=== PATIENT | male | born 1995 | race Caucasian/White ===

== ENCOUNTER 2017-03-20 12:26 | Emergency (ER) | payer OTHER ==
[2017-03-20 12:34] VITALS: TEMP 98.4
[2017-03-20] MEDS ORDERED: NS 1,000 ML IV ONE (13:40)
[2017-03-20 14:15] LABS: PLATELET COUNT 195 10^3/uL (150-400)
[2017-03-20] MEDS ORDERED: DEXAMETHASONE 10 MG/ML VIAL IVP ONE (14:52)
--- NOTE | 2017-03-20 15:11 | EDPHY ---
H & P Time Seen by Provider: 03/20/17 13:23 HPI/ROS: CHIEF COMPLAINT: Sore throat HISTORY OF PRESENT ILLNESS: 21-year-old male presents to the emergency department by private vehicle complaining of sore throat. Patient states that he had a fever for approximately 10 days and over the last 5 days has had sore throat. He was seen at [facility] and was started on penicillin for probable strep pharyngitis. He states despite taking penicillin over last 5 days he has had continued ongoing sore throat. He felt like it was getting worse today. He went to [facility] and was given IM injection of antibiotics and what he thought was steroids. He was told to come to the emergency department for evaluation. Patient denies fever currently. He denies dysphagia. He states having the injections at urgent care he is feeling much better and he is able to talk. He was having some pain and difficulty swallowing earlier today. Denies abdominal pain or vomiting. No chest pain or difficulty breathing. Denies fatigue. He states he is actually having difficulty sleeping because the pain in his throat and his nasal congestion. REVIEW OF SYSTEMS: Constitutional: No fever, no chills. Eyes: No double or blurry vision. ENT: sore throat. Nasal congestion. Respiratory: No cough, no shortness of breath. Cardiac: No chest pain. Gastrointestinal: No abdominal pain, vomiting or diarrhea. Genitourinary: No dysuria. Musculoskeletal: No neck or back pain. Skin: No rashes. Neurological: No headache. Past Medical/Surgical History: Asthma, right ear surgery Social History: Single Smoking Status: Never smoked Physical Exam: General Appearance: Alert, no distress. Afebrile. Nontoxic appearing. Eyes: Pupils equal and round. Extraocular motions are all intact. ENT: Mouth: Mucous membranes moist. No muffled voice or trismus. Exudate of pharyngitis he noted with swollen, 2+ tonsils. No uvular swelling or shift. No evidence of peritonsillar abscess. Patient has palpable anterior and posterior cervical lymphadenopathy noted. Respiratory: No wheezing, rhonchi, or rales, lungs are clear to auscultation. Cardiovascular: Regular rate and rhythm. Gastrointestinal: Abdomen is soft and nontender, no masses, no rebound or guarding, bowel sounds normal. Neurological: Alert and oriented x 3, cranial nerves II through XII grossly intact Skin: Warm and dry, no rashes. Musculoskeletal: Nontender to palpate along the cervical, thoracic or lumbar spine. Neck is supple. Extremities: Full range of motion and no peripheral edema. Psychiatric: Patient is oriented X 3, there is no agitation. Constitutional: Initial Vital Signs Temperature (C) 36.9 C 03/20/17 12:32 Heart Rate 119 H 03/20/17 12:32 Respiratory Rate 20 03/20/17 12:32 Blood Pressure 118/76 03/20/17 12:32 O2 Sat (%) 96 03/20/17 12:32 O2 Delivery Mode Room Air Allergies/Adverse Reactions: No Known Allergies Allergy (Unverified 03/20/17 12:31) Home Medications: Medication Instructions Recorded Ondansetron Odt [Zofran Odt] 4 mg PO Q4PRN #8 tab 03/20/17 Penicillin VK 03/20/17 predniSONE 40 mg PO DAILY 3 Days tab 03/20/17 Medical Decision Making ED Course/Re-evaluation: 21-year-old male presents with exudate pharyngitis. He was seen at urgent care earlier today and had IM injection of ceftriaxone and apparently Solu-Medrol IM. I spoke with [facility] since his form says that he received 60 mg of IM Solu-Medrol. The patient actually receive 60 mg of IM Toradol and not Solu-Medrol. The patient was given 10 mg Decadron IV as well as IV normal saline. He was feeling much better. Laboratory studies reveal elevated white blood cell count with elevated atypical lymphocytes. Positive Monospot. Patient will be discharged with oral steroids. The patient was warned against doing any kind of contact sports. He will return if he develops abdominal pain , recurring difficulty swallowing, or any other concerns. I do not see any evidence of peritonsillar abscess. Patient has no evidence of muffled voice or trismus. He will be treated with oral steroids and close follow-up with primary care provider. Differential Diagnosis: Including but not limited to mononucleosis, strep pharyngitis, viral upper respiratory infection, peritonsillar abscess, retropharyngeal abscess - Data Points Laboratory Results: Laboratory Results 03/20/17 14:08 03/20/17 14:08 03/20/17 03/20/17 03/20/17 14:08 14:08 14:08 WBC 12.42 10^3/uL H 10^3/uL (3.80-9.50) RBC 5.25 10^6/uL 10^6/uL (4.40-6.38) Hgb 14.9 g/dL g/dL (13.7-17.5) Hct 43.7 % % (40.0-51.0) MCV 83.2 fL fL (81.5-99.8) MCH 28.4 pg pg (27.9-34.1) MCHC 34.1 g/dL g/dL (32.4-36.7) RDW 14.1 % % (11.5-15.2) Plt Count 195 10^3/uL 10^3/uL (150-400) MPV 9.3 fL fL (8.7-11.7) Neut % (Auto) 30.2 % L % (39.3-74.2) Lymph % (Auto) 57.4 % H % (15.0-45.0) Lyon % (Auto) 10.9 % % (4.5-13.0) Eos % (Auto) 0.2 % L % (0.6-7.6) Baso % (Auto) 0.8 % % (0.3-1.7) Nucleat RBC Rel Count 0.0 % % (0.0-0.2) Absolute Neuts (auto) 3.75 10^3/uL 10^3/uL (1.70-6.50) Absolute Lymphs (auto) 7.13 10^3/uL H 10^3/uL (1.00-3.00) Absolute Monos (auto) 1.35 10^3/uL H 10^3/uL (0.30-0.80) Absolute Eos (auto) 0.03 10^3/uL 10^3/uL (0.03-0.40) Absolute Basos (auto) 0.10 10^3/uL 10^3/uL (0.02-0.10) Absolute Nucleated RBC 0.00 10^3/uL 10^3/uL (0-0.01) Immature Gran % 0.5 % % (0.0-1.1) Seg Neutrophils % 33 % % Band Neutrophils % 1 % % Lymphocytes % 57 % % Monocytes % 9 % % Immature Gran # 0.06 10^3/uL 10^3/uL (0.00-0.10) Absolute Seg Neuts 4.10 10^/uL 10^/uL (1.70-6.50) Absolute Band Neuts 0.12 10^3/uL 10^3/uL (0.00-0.70) Absolute Lymphocytes 7.08 10^3/uL H 10^3/uL (1.00-3.00) Absolute Monocytes 1.12 10^3/uL H 10^3/uL (0.30-0.80) RBC/WBC/PLT Morphology NORMAL (NORMAL) Platelet Estimate ADEQUATE (ADEQ) Smear Review By Pending Sodium 138 mEq/L mEq/L (135-145) Potassium 4.6 mEq/L mEq/L (3.5-5.2) Chloride 99 mEq/L mEq/L (97-110) Carbon Dioxide 20 mEq/l L mEq/l (22-31) Anion Gap 19 mEq/L H mEq/L (8-16) BUN 15 mg/dL mg/dL (7-23) Creatinine 0.9 mg/dL mg/dL (0.7-1.3) Estimated GFR > 60 Glucose 82 mg/dL mg/dL (70-100) Calcium 8.9 mg/dL mg/dL (8.5-10.4) Monoscreen POSITIVE H (NEGATIVE) Medications Given: Discontinued Medications Dexamethasone (Decadron Injection) 10 mg IVP EDNOW ONE Stop: 03/20/17 14:53 Last Admin: 03/20/17 15:29 Dose: 10 mg Sodium Chloride (Ns) 1,000 mls @ 0 mls/hr IV ONCE ONE PRN Reason: Wide Open Stop: 03/20/17 13:41 Last Admin: 03/20/17 14:18 Dose: 1,000 mls Ondansetron HCl (Zofran) 4 mg IVP EDNOW ONE Stop: 03/20/17 15:38 Last Admin: 03/20/17 15:38 Dose: 4 mg Departure - Departure Disposition: Home, Routine, Self-Care Clinical Impression: Mononucleosis Condition: Good Instructions: Mononucleosis (ED) Additional Instructions: You should avoid sharing beverages or kissing as this is how mononucleosis is spread. Continue Penicillin as directed. Ibuprofen 600 mg every 8 hr as needed for pain and swelling. Prednisone daily for 3 days. Return to the emergency department if he developed recurring difficulty swallowing, difficulty breathing, or if you feel worse in any way. 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
[2017-03-20] MEDS ORDERED: ONDANSETRON 4 MG/2 ML VIAL ONE (15:36)
[2017-03-20] MEDS ORDERED: ONDANSETRON 4 MG/2 ML VIAL IVP ONE (15:37)
[2017-03-20 15:51] VITALS: BP 118/60
[2017-03-20 16:27] VITALS: PULSE 115; RESP 20; O2SAT 97
== END 2017-03-20 16:27 | disposition home or self-care (01) ==
DX: B27.90 Infectious mononucleosis, unspecified without complication (principal); J45.909 Unspecified asthma, uncomplicated
CPT/HCPCS: 96374; J1100; J2405